=== PATIENT | female | born 1995 | race Caucasian/White ===

== ENCOUNTER 2017-03-09 16:30 | Emergency (ER) | payer OTHER ==
[~2017-03-09] VITALS: Ht 170.2 cm; Wt 133.8 kg
[~2017-03-09 16:30] MED LIST: ACETAMINOPHEN-1 EAC1 PO; ALDACTONE25 MG PO; AMOXICILLIN 50500 MG PO; AUGMENTIN 875875 MG PO; BACTRIM DS TAB1 EACH PO; BENADRYL25 MG PO; CEFDINIR300 MG PO; CELEXA 10 MG TA10 M1; CEPHALEXIN 500500 M3 PO; DULCOLAX5 MG PO; ESCITALOPRAM OX20 MG PO; GLUCOPHAGE500 MG; HYDROCODON-ACE1 EAC7 PO; IBUPROFEN 800800 M1 PO; KEFLEX500 MG PO; LEXAPRO 10 MG T10 M1 PO; MACROBID 100 M100 M2 PO; MEDROLDOSEPACK PO; METFORMIN HCL500 MG PO; MIRALAX17 GM PO; MONONESSA1 EACH; NAPROSYN500 MG PO; NOHOMEMEDICATIONS; NORCO 5-325 TA1 EACH PO; ONDANSETRON HCL4 M2 PO; OSELB75 PO; PAXIL10 MG PO; PENICILLIN VK500 MG PO; PEPCID20 MG PO; PERCOCET 5-3251 EACH PO; PERCOCET PO; PHENAZOPYRIDIN200 M2 PO; PHENERGAN 25 MG25 M1 PO; PHENERGAN 25 MG25 MG PO; PHENERGAN VC-C120 ML PO; PROAIR HFA8.5 GM INH; ROBAXIN 750 MG750 M1 PO; SPIRONOLACTONE25 M1 PO; TRAMADOL 50 MG50 MG PO; TRAZODONE 150150 M1 PO; TRAZODONE HCL50 MG PO; TYLENOL WITH CO1 TA1 PO; ZIAGEN 300 MG300 MG; ZOFRAN ODT4 MG PO; ZOFRAN4 MG PO
[2017-03-09 17:03] VITALS: BP 144/79
== END 2017-03-09 17:04 | disposition home or self-care (01) ==
LOC: M.ERS 16:30
DX: N64.4 Mastodynia (principal); J06.9 Acute upper respiratory infection, unspecified; F32.9 Major depressive disorder, single episode, unspecified; Z87.440 Personal history of urinary (tract) infections; Z98.890 Other specified postprocedural states; Z88.5 Allergy status to narcotic agent

== ENCOUNTER 2017-03-30 22:31 | Emergency (ER) | payer OTHER ==
[~2017-03-30] VITALS: Ht 170.2 cm; Wt 136.1 kg
[2017-03-30 23:12] LABS: INFLUENZA A ANTIGEN None Detected (None Detect); INFLUENZA B ANTIGEN None Detected (None Detect)
[2017-03-30] MEDS ORDERED: ZPAK PO (23:37)
[2017-03-30] MEDS ORDERED: PROAIR HFA8.5 GM INH (23:37)
[2017-03-30] MEDS ORDERED: MEDROLDOSEPACK PO (23:37)
[2017-03-30] MEDS ORDERED: PROMETHAZINE V473 ML PO (23:37)
[2017-03-30] MEDS ORDERED: ACETAMINOPHEN-1 EAC1 PO (23:37)
[2017-03-30 23:54] VITALS: BP 135/72
== END 2017-03-30 23:55 | disposition home or self-care (01) ==
LOC: M.ERS 22:31
PROVIDERS: Physician Assistant
DX: J20.9 Acute bronchitis, unspecified (principal); E28.2 Polycystic ovarian syndrome; F32.9 Major depressive disorder, single episode, unspecified; N80.9 Endometriosis, unspecified; Z88.5 Allergy status to narcotic agent; Z90.49 Acquired absence of other specified parts of digestive tract; Z87.440 Personal history of urinary (tract) infections

== ENCOUNTER 2017-04-02 00:20 | Emergency (ER) | payer OTHER ==
[~2017-04-02] VITALS: Ht 170.2 cm; Wt 136.1 kg
[~2017-04-02 00:20] MED LIST changes: +PROMETHAZINE V473 ML PO; +ZPAK PO
[2017-04-02 02:00] LABS: ABSOLUTE BASOPHILS 0.1 thou/uL (0.0-0.2); ABSOLUTE EOSINOPHILS 0.3 thou/uL (0.0-0.7); ABSOLUTE MONOCYTES 0.6 thou/uL (0.0-1.2); ABSOLUTE NEUTROPHILS 5.4 thou/uL (1.6-8.1); BASOPHILS 0.5 %; HEMATOCRIT 39.6 % (37.0-47.0); HEMOGLOBIN 13.1 gm/dL (12.0-15.0); LYMPHOCYTES 38.8 %; MCH 27.9 pg (26.0-34.0); MCHC 33.1 g/dL (28.0-37.0); MCV 84.4 fL (80.0-100.0); MONOCYTES 5.3 %; MPV 8.6 fl. (7.2-11.1); NUCLEATED RBCS 0 /100WBC; PLATELET COUNT* 267 thou/uL (150-400); POLYS 52.4 %; RDW-CV 13.2 % (10.5-14.5); WBC 10.4 thou/uL (4.0-11.0)
[2017-04-02 02:01] LABS: ANION GAP 9 mmol/L (7-16); BUN 17 mg/dL (7-18); CALCIUM 8.9 mg/dL (8.5-10.1); CHLORIDE 104 mmol/L (98-107); CO2 29 mmol/L (21-32); CREATININE 0.7 mg/dL (0.6-1.3); GLUCOSE 82 mg/dL (70-99); POTASSIUM 4.2 mmol/L (3.5-5.1); SODIUM 142 mmol/L (136-145)
[2017-04-02 02:10] LABS: ALBUMIN 4.1 g/dL (3.4-5.0); ALKALINE PHOSPHATASE 87 U/L (46-116); SGOT 16 U/L (15-37); SGPT 24 U/L (30-65); TOTAL BILIRUBIN 0.1 mg/dL (<0.1-1.0); TOTAL PROTEIN 7.7 g/dL (6.4-8.2); TROPONIN-I LEVEL <0.06 ng/mL (<0.06)
[2017-04-02] MEDS ORDERED: IBUPROFEN 800800 MG PO (03:22)
[2017-04-02 03:32] VITALS: BP 117/66
--- NOTE | 2017-04-02 11:50 | EKG ---
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 : 1995 Requested By: Iris Fatima Order Number: [id number] Reading MD: Lenny Chicas Measurements Intervals [place] Rate: 72 P: 36 MD: 155 QRS: 51 QRSD: 88 T: 38 QT: 374 QTc: 410 Interpretive Statements Sinus rhythm Atrial premature complex Probable left atrial enlargement Borderline Q waves in inferior leads Abnormal inferior Q waves Compared to ECG 11/07/2014 02:16:09 Atrial premature complex(es) now present Inferior Q waves now present Q waves now present Electronically Signed On 04-02-2017 11:50:03 [employer] by Lenny Chicas [email or web address] <ELECTRONICALLY SIGNED> By: Lenny Chicas MD, [facility] 04/02/17 1150 0025 0025 Lenny Chicas MD, [facility] /EPI
== END 2017-04-02 03:33 | disposition home or self-care (01) ==
LOC: M.ERS 00:20
PROVIDERS: Personal Emergency Response Attendant
DX: R07.81 Pleurodynia (principal)

== ENCOUNTER 2017-05-01 20:50 | Emergency (ER) | payer OTHER ==
[~2017-05-01] VITALS: Ht 170.2 cm; Wt 136.1 kg
[~2017-05-01 20:50] MED LIST changes: +IBUPROFEN 800800 MG PO
[2017-05-01] MEDS ORDERED: PHENERGAN 25 MG25 M1 PO (21:26)
[2017-05-01] MEDS ORDERED: AUGMENTIN 875-1 EACH PO (21:26)
[2017-05-01 21:37] VITALS: BP 126/73
== END 2017-05-01 21:37 | disposition home or self-care (01) ==
LOC: M.ERS 20:50
DX: J32.9 Chronic sinusitis, unspecified (principal); F32.9 Major depressive disorder, single episode, unspecified; Z88.5 Allergy status to narcotic agent; Z90.49 Acquired absence of other specified parts of digestive tract; Z86.19 Personal history of other infectious and parasitic diseases

== ENCOUNTER 2017-05-09 14:50 | Emergency (ER) | payer OTHER ==
[~2017-05-09] VITALS: Ht 170.2 cm; Wt 136.1 kg
[~2017-05-09 14:50] MED LIST changes: +AUGMENTIN 875-1 EACH PO
[2017-05-09] MEDS ORDERED: IBUPROFEN 800800 M1 PO (15:11)
[2017-05-09] MEDS ORDERED: KEFLEX500 M1 PO (15:11)
[2017-05-09 16:04] LABS: ABSOLUTE BASOPHILS 0.1 thou/uL (0.0-0.2); ABSOLUTE EOSINOPHILS 0.2 thou/uL (0.0-0.7); ABSOLUTE LYMPHOCYTES 3.3 thou/uL (0.8-5.3); ABSOLUTE MONOCYTES 0.8 thou/uL (0.0-1.2); BASOPHILS 0.5 %; EOSINOPHILS 2.1 %; HEMATOCRIT 34.7 % (37.0-47.0); HEMOGLOBIN 11.6 gm/dL (12.0-15.0); MCHC 33.4 g/dL (28.0-37.0); MCV 83.8 fL (80.0-100.0); MONOCYTES 7.4 %; MPV 8.2 fl. (7.2-11.1); NUCLEATED RBCS 0 /100WBC; PLATELET COUNT* 229 thou/uL (150-400); RBC 4.14 mil/uL (4.20-5.00); RDW-CV 13.5 % (10.5-14.5); WBC 10.4 thou/uL (4.0-11.0)
[2017-05-09 16:08] LABS: CALCIUM 8.6 mg/dL (8.5-10.1); CREATININE 0.8 mg/dL (0.6-1.3); POTASSIUM 3.8 mmol/L (3.5-5.1)
[2017-05-09 16:12] LABS: ALBUMIN 3.5 g/dL (3.4-5.0); TOTAL BILIRUBIN 0.3 mg/dL (<0.1-1.0); TOTAL PROTEIN 7.3 g/dL (6.4-8.2)
[2017-05-09 16:41] LABS: URINE BILIRUBIN NEGATIVE (Negative); URINE BLOOD TRACE (Negative); URINE CLARITY CLEAR; URINE COLOR YELLOW; URINE GLUCOSE-RANDOM NEGATIVE (Negative); URINE KETONES NEGATIVE (Negative); URINE LEUKOCYTES-REFLEX 1+ (Negative); URINE NITRITE-REFLEX NEGATIVE (Negative); URINE PROTEIN NEGATIVE (Negative); URINE SPECIFIC GRAVITY >= 1.030 (1.005-1.030); URINE UROBILINOGEN 0.2 E.U./dl (0.2-1.0)
[2017-05-09 16:57] LABS: BACTERIA-REFLEX 1-9 Few /HPF (None Seen); CASTS None Seen /LPF (None Seen); CRYSTALS None Seen /LPF (None Seen); MUCUS 0-3 Light strn/LPF (None Seen); SQUAMOUS >10 Many /LPF (0-3); URINE RBC 0-2 Rare /HPF (0-2); URINE WBC-REFLEX 6-15 Few /HPF (0-5); WBC CLUMPS Few (None Seen)
[2017-05-09] MEDS ORDERED: ZOFRAN ODT4 MG PO (17:29)
[2017-05-09] MEDS ORDERED: BACTRIM DS TAB1 EACH PO (17:29)
[2017-05-09 17:41] VITALS: BP 130/71
== END 2017-05-09 17:42 | disposition home or self-care (01) ==
LOC: M.ERS 14:50
PROVIDERS: Nurse Practitioner Psychiatric/Mental Health
DX: N30.01 Acute cystitis with hematuria (principal); L03.116 Cellulitis of left lower limb; F32.9 Major depressive disorder, single episode, unspecified; Z90.49 Acquired absence of other specified parts of digestive tract; Z86.19 Personal history of other infectious and parasitic diseases; Z88.5 Allergy status to narcotic agent

== ENCOUNTER 2019-08-22 15:51 | Observation (INO) | payer OTHER ==
[~2019-08-22] VITALS: Ht 170.2 cm; Wt 136.1 kg
[~2019-08-22 15:51] MED LIST changes: +KEFLEX500 M1 PO
[2019-08-22 16:10] VITALS: BP 107/51
[2019-08-22 18:29] LABS: ABSOLUTE EOSINOPHILS 0.1 thou/uL (0.0-0.7); ABSOLUTE LYMPHOCYTES 3.1 thou/uL (0.8-5.3); ABSOLUTE MONOCYTES 0.6 thou/uL (0.0-1.2); ABSOLUTE NEUTROPHILS 7.3 thou/uL (1.6-8.1); BASOPHILS 0.2 %; EOSINOPHILS 0.7 %; HEMOGLOBIN 12.1 gm/dL (12.0-15.0); LYMPHOCYTES 28.1 %; MCH 27.3 pg (26.0-34.0); MCHC 33.6 g/dL (28.0-37.0); MCV 81.2 fL (80.0-100.0); MONOCYTES 5.8 %; MPV 7.9 fl. (7.2-11.1); NUCLEATED RBCS 0 /100WBC; PLATELET COUNT* 293 thou/uL (150-400); POLYS 65.2 %; RBC 4.44 mil/uL (4.20-5.00); RDW-CV 12.8 % (10.5-14.5); WBC 11.2 thou/uL (4.0-11.0)
[2019-08-22 18:39] LABS: POTASSIUM 3.7 mmol/L (3.5-5.1)
[2019-08-22 18:49] LABS: ALBUMIN 4.3 g/dL (3.4-5.0); MAGNESIUM 1.9 mg/dL (1.8-2.4); TOTAL BILIRUBIN 0.3 mg/dL (<0.1-1.0); TOTAL PROTEIN 8.6 g/dL (6.4-8.2)
[2019-08-22 19:16] LABS: URINE BILIRUBIN 1+ (Negative); URINE BLOOD NEGATIVE (Negative); URINE CLARITY CLOUDY; URINE COLOR YELLOW; URINE GLUCOSE-RANDOM NEGATIVE (Negative); URINE KETONES NEGATIVE (Negative); URINE LEUKOCYTES-REFLEX NEGATIVE (Negative); URINE NITRITE-REFLEX NEGATIVE (Negative); URINE PROTEIN 1+ (Negative); URINE SPECIFIC GRAVITY >= 1.030 (1.005-1.030); URINE UROBILINOGEN 0.2 E.U./dl (0.2-1.0)
[2019-08-22 19:19] LABS: ICTOTEST (BILI CONFIRMATORY) Negative (Negative)
[2019-08-22 19:23] LABS: HYALINE CASTS >10 Many /LPF (None Seen); MUCUS >6 Heavy strn/LPF (None Seen); SQUAMOUS >10 Many /LPF (0-3); URINE WBC-REFLEX 0-5 Rare /HPF (0-5)
[2019-08-22 19:24] LABS: CRYSTALS None Seen /LPF (None Seen); URINE RBC None Seen /HPF (0-2)
[2019-08-22 19:31] LABS: AMP/METHAMP Negative (Negative); BARBITURATES Negative (Negative); BENZODIAZEPINES POSITIVE (Negative); COCAINE Negative (Negative); METHADONE Negative (Negative); OPIATES Negative (Negative); PCP Negative (Negative); THC Negative (Negative)
[2019-08-23] MEDS ORDERED: AMOXICILLIN875 MG PO (00:31)
[2019-08-23 02:35] VITALS: BP 107/60
[2019-08-23 06:27] VITALS: BP 96/50
[2019-08-23 09:54] VITALS: BP 110/61
[2019-08-23] MEDS ORDERED: SUBOXONE 8 MG-1 EAC3 SUBLING (09:56)
[2019-08-23] MEDS ORDERED: METFORMIN HCL500 M3 PO (09:56)
[2019-08-23] MEDS ORDERED: XANAX 0.5 MG0.5 MG PO (09:56)
[2019-08-23] MEDS ORDERED: SPIRONOLACTONE25 M1 PO (09:57)
[2019-08-23 10:57] LABS: CHOLESTEROL 155 mg/dL (<200); HDL CHOLESTEROL 27 mg/dL (>40); LDL CHOLESTEROL 90 mg/dL (<100); TC:HDL 5.7 Ratio (Not establshd); TRIGLYCERIDE 194 mg/dL (<150); VLDL 39 mg/dL (<40)
[2019-08-23 10:58] LABS: SERUM ASSESSMENT Clear
[2019-08-23] MEDS ORDERED: CEFDINIR300 MG PO (12:32)
--- NOTE | 2019-08-23 13:30 | NUR ---
AT 1324 PT AT STRESS TEST PER CARDIOLOGY
[2019-08-23 14:51] VITALS: BP 110/61
--- NOTE | 2019-08-23 15:12 | EXE ---
[place] [address] STRESS ECHOCARDIOGRAM Name: AMAURI TOLENTINO Room: [address] Иван#: [id number] Admission: 08/23/19 Attend Phys: Dipak Headley, Discharge: Date of : [birth year] Date of Service: 08/23/19 1511 Report #: [id number] THIS REPORT FOR: cc: FAM - No family physician/PCP FAM - No family physician/PCP Syed Gaxiola MD [facility] ~ APPROVED REPORT Study performed: 08/23/2019 13:32:30 Exam: Stress Echocardiogram Indication: Chest pain Stress Nurse: Sarah Beth Dietz RN Supervising Physician: Syed Gaxiola MD Ht: 5 ft 7 in HR: 75 bpm BP: 129/66 mmHg Medical History Allergies: Hydrocodone Cardiac Risk Factors: FHX of CAD Procedure The patient underwent an Exercise Stress Test using the Modified Juan F Protocol. Blood pressure, heart rate, and EKG were monitored. An Echocardiogram was performed by procurement technician in four stages in quad fashion. At peak stress, four selected images were obtained and placed side by side with resting images for comparison. Stress Test Details Stress Test: Exercise stress testing was performed using a modified Juan F protocol. HR Resting HR: 75 bpm Max Heart Rate (APMHR): 195 bpm Max HR Achieved: 156 bpm Target HR (85% APMHR): 165 bpm % of APMHR: 80 Recovery HR: 156 bpm HR response to stress: Normal HR response to stress BP Resting BP: 129/66 mmHg Max BP: 212/31 mmHg Recovery BP: 130/61 [place] [address] STRESS ECHOCARDIOGRAM Name: AMAURI TOLENTINO [address] [id number] Admission: 08/23/19 Attend Phys: Dipak Headley, Discharge: Date of : [birth year] Date of Service: 08/23/19 1511 Report #: [id number] Resting ECG: Normal EKG Stress ECG: No ischemic st-t changes Clinical Reason for Termination: Maximal effort Exercise duration: 10 min 02 sec Highest Stage Achieved: Stage 2: 2.5 mph at 12% grade. Exercise capacity: 7.05 METs Overall Exercise Capacity for Age: Average Pre-Stress Echo The resting Echocardiogram showed normal left ventricular contractility with an estimated Ejection Fraction of about 55-60%. Normal wall motion in all segments on baseline images. Post-Stress Echo The stress Echocardiogram showed normal left ventricular contractility with an estimated Ejection Fraction of about >70%. Normal augmentation of wall motion in all segments on post stress images. Conclusion Clinical Response: Non-ischemic Exercise Capacity: Average Stress ECG Response: Non-ischemic Stress Echo Images: Non-ischemic Other Information Study Quality: Good <ELECTRONICALLY SIGNED> By: Syed Gaxiola MD, [facility] 08/23/191510 10 10 Syed Gaxiola MD, [facility] /INF
[2019-08-23 15:25] VITALS: BP 110/61
[2019-08-23 15:28] VITALS: BP 110/61
--- NOTE | 2019-08-23 15:34 | EKG ---
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 : 1995 Requested By: Tata Prajapati Order Number: [id number] MD: Syed Gaxiola Measurements Intervals [place] Rate: 111 P: 46 HI: 149 QRS: 61 QRSD: 91 T: 5 QT: 309 QTc: 420 Interpretive Statements Sinus tachycardia Borderline Q waves in inferior leads Abnormal inferior Q waves Compared to ECG 04/02/2017 00:25:35 Sinus rate has increased Atrial premature complex(es) no longer present Electronically Signed On 08-23-2019 15:34:18 CDT by Syed Gaxiola [email or web address] <ELECTRONICALLY SIGNED> By: Syed Gaxiola MD, [facility] 08/23/19 1534 1600 1600 Syed Gaxiola MD, [facility] /EPI
--- NOTE | 2019-08-23 15:39 | EKG ---
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: [facility] : 1995 Requested By: Iris Fatima Order Number: [id number] MD: Syed Gaxiola Measurements Intervals [place] Rate: 72 P: 43 [place]: 175 QRS: 61 QRSD: 93 T: 44 QT: 397 QTc: 435 Interpretive Statements Sinus rhythm Borderline Q waves in inferior leads Compared to ECG 04/02/2017 00:25:35 Atrial premature complex(es) no longer present Inferior Q waves are less prominent Electronically Signed On 08-23-2019 15:38:58 CDT by Syed Gaxiola [email or web address] <ELECTRONICALLY SIGNED> By: Seyd Gaxiola MD, [facility] 08/23/19 1538 0117 0117 Syed Gaxiola MD, [facility] /EPI
[2019-08-24 02:06] LABS: GLYCOHEMOGLOBIN (HGB A1C) 5.2 % (4.8-5.6)
== END 2019-08-23 15:31 | disposition home or self-care (01) ==
LOC: M.ERS 15:51 → M.TBA-ER 08-23 00:47
PROVIDERS: Internal Medicine; Nurse Practitioner Family; ADMIT Internal Medicine; ATTEND Internal Medicine
DX: R07.89 Other chest pain (principal); R42 Dizziness and giddiness; N39.0 Urinary tract infection, site not specified; E28.2 Polycystic ovarian syndrome; F32.9 Major depressive disorder, single episode, unspecified; F43.10 Post-traumatic stress disorder, unspecified; R06.02 Shortness of breath; Z86.19 Personal history of other infectious and parasitic diseases; Z87.891 Personal history of nicotine dependence; R11.2 Nausea with vomiting, unspecified; F41.9 Anxiety disorder, unspecified

== ENCOUNTER 2020-01-20 16:53 | Emergency (ER) | payer OTHER ==
[~2020-01-20] VITALS: Ht 170.2 cm; Wt 140.6 kg
[~2020-01-20 16:53] MED LIST changes: +AMOXICILLIN875 MG PO; +METFORMIN HCL500 M3 PO; +SUBOXONE 8 MG-1 EAC3 SUBLING; +XANAX 0.5 MG0.5 MG PO
[2020-01-20] MEDS ORDERED: AMOXICILLIN 50500 MG PO (18:20)
[2020-01-20] MEDS ORDERED: BUTALB-APAP-CA1 EACH PO (18:20)
[2020-01-20 18:25] VITALS: BP 128/84
--- NOTE | 2020-01-21 15:41 | EKG ---
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[place] : 1995 Requested By: Jason Leslie Order Number: [id number] MD: Oni Galindo Measurements Intervals [place] Rate: 79 P: 44 NE: 153 QRS: 72 QRSD: 87 T: 48 QT: 350 QTc: 402 Interpretive Statements Sinus rhythm Borderline Q waves in inferior leads Minimal ST depression, lateral leads Compared to ECG 08/23/2019 01:17:29 ST (T wave) deviation now present Electronically Signed On 01-21-2020 15:41:19 [employer] INSPECT[employer] by Oni Galindo [email or web address] <ELECTRONICALLY SIGNED> By: Bibiana Galindo MD, FAC 01/21/20 1541 1705 1705 Bibiana Galindo MD, [facility] /EPI
== END 2020-01-20 18:28 | disposition home or self-care (01) ==
LOC: M.ERS 16:53
DX: J02.9 Acute pharyngitis, unspecified (principal); R50.9 Fever, unspecified; R52 Pain, unspecified; Z20.828 Contact with and (suspected) exposure to other viral communicable diseases; R42 Dizziness and giddiness; F32.9 Major depressive disorder, single episode, unspecified; Z90.49 Acquired absence of other specified parts of digestive tract; Z79.899 Other long term (current) drug therapy; Z88.6 Allergy status to analgesic agent

== ENCOUNTER 2020-06-30 20:36 | Emergency (ER) | payer OTHER ==
[~2020-06-30] VITALS: Ht 170.2 cm; Wt 140.6 kg
[~2020-06-30 20:36] MED LIST changes: +BUTALB-APAP-CA1 EACH PO
[2020-06-30 21:17] LABS: ABSOLUTE EOSINOPHILS 0.3 thou/uL (0.0-0.7); ABSOLUTE LYMPHOCYTES 2.7 thou/uL (0.8-5.3); ABSOLUTE MONOCYTES 0.4 thou/uL (0.0-1.2); ABSOLUTE NEUTROPHILS 3.4 thou/uL (1.6-8.1); BASOPHILS 0.7 %; EOSINOPHILS 5.1 %; HEMATOCRIT 32.3 % (37.0-47.0); HEMOGLOBIN 10.6 gm/dL (12.0-15.0); LYMPHOCYTES 38.9 %; MCH 27.1 pg (26.0-34.0); MCHC 32.7 g/dL (28.0-37.0); MONOCYTES 5.7 %; MPV 7.5 fl. (7.2-11.1); NUCLEATED RBCS 0 /100WBC; PLATELET COUNT* 254 thou/uL (150-400); POLYS 49.6 %; RBC 3.89 mil/uL (4.20-5.00); RDW-CV 13.5 % (10.5-14.5); WBC 6.9 thou/uL (4.0-11.0)
[2020-06-30 21:28] LABS: APTT 26.3 Seconds (25.0-31.3); PROTIME 10.2 Seconds (9.20-11.50)
[2020-06-30 21:31] LABS: CALCIUM 8.7 mg/dL (8.5-10.1); CREATININE 0.7 mg/dL (0.6-1.3); POTASSIUM 3.6 mmol/L (3.5-5.1)
[2020-06-30 21:36] LABS: ALBUMIN 3.5 g/dL (3.4-5.0); TOTAL BILIRUBIN 0.2 mg/dL (<0.1-1.0); TOTAL PROTEIN 7.3 g/dL (6.4-8.2)
[2020-06-30 23:05] LABS: URINE BILIRUBIN NEGATIVE (Negative); URINE BLOOD NEGATIVE (Negative); URINE CLARITY CLEAR; URINE COLOR YELLOW; URINE GLUCOSE-RANDOM NEGATIVE (Negative); URINE KETONES NEGATIVE (Negative); URINE LEUKOCYTES-REFLEX NEGATIVE (Negative); URINE NITRITE-REFLEX NEGATIVE (Negative); URINE PROTEIN NEGATIVE (Negative); URINE SPECIFIC GRAVITY >= 1.030 (1.005-1.030); URINE UROBILINOGEN 0.2 E.U./dl (0.2-1.0)
[2020-06-30 23:41] LABS: AMP/METHAMP POSITIVE (Negative); BARBITURATES Negative (Negative); BENZODIAZEPINES POSITIVE (Negative); COCAINE Negative (Negative); METHADONE Negative (Negative); OPIATES POSITIVE (Negative); PCP Negative (Negative); THC POSITIVE (Negative)
[2020-07-01] MEDS ORDERED: NAPROSYN500 MG PO (00:24)
[2020-07-01] MEDS ORDERED: MEDROLDOSEPACK PO (00:24)
[2020-07-01 01:15] VITALS: BP 132/79
--- NOTE | 2020-07-01 11:23 | EKG ---
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1995 Requested By: Tata Prajapati Order Number: [id number] MD: Isidro Fajardo Measurements Intervals [place] Rate: 88 P: 33 UT: 153 QRS: 45 QRSD: 93 T: 28 QT: 363 QTc: 440 Interpretive Statements Sinus rhythm Borderline Q waves in inferior leads Compared to ECG 01/20/2020 17:05:17 no change Electronically Signed On 07-01-2020 11:23:39 CDT by Isidro Fajardo [email or web address] <ELECTRONICALLY SIGNED> By: Isidro Fajardo MD, [facility] 07/01/203 57 57 Isidro Fajardo MD, [facility] /EPI
== END 2020-07-01 01:15 | disposition home or self-care (01) ==
LOC: M.ERS 20:36
PROVIDERS: Nurse Practitioner Family
DX: T78.49XA Other allergy, initial encounter (principal); X58.XXXA Exposure to other specified factors, initial encounter; R22.0 Localized swelling, mass and lump, head; R07.89 Other chest pain; R82.5 Elevated urine levels of drugs, medicaments and biological substances; Z20.822 Contact with and (suspected) exposure to COVID-19